=== PATIENT | male | born 1950 | race Caucasian/White ===

== ENCOUNTER 2024-05-25 14:43 | Emergency (ER) | payer MEDICARE, SELFPAY ==
[2024-05-25] VITALS (13 sets, daily range): BP systolic 114–144; BP diastolic 38–78; PULSE 55–75; RESP 16–18; TEMP 36.3–36.6; O2SAT 86–98
--- NOTE | 2024-05-25 15:15 | DI.CT_ITS ---
Exam(s) CT ABDOMEN PELVIS W EXAM: CT ABDOMEN PELVIS W CLINICAL HISTORY: abdomen pain, constipation, ?bowel obstruction. TECHNIQUE: Imaging Protocol: Axial computed tomography images with coronal and sagittal reformatted images were created and reviewed CONTRAST MATERIAL: Intravenous: Omnipaque 350 Contrast volume:75 ml Oral: no COMPARISON: No exams were available for comparison FINDINGS: ABDOMEN and PELVIS: Lung Bases: No acute findings. Liver: Normal density. No suspicious mass. Gallbladder and biliary tract: 2 calcified gallstones. No abnormal gallbladder distention or wall th ickening. No biliary dilation. Pancreas: Normal density. No abnormal calcifications or inflammatory process. No evidence of mass. Spleen: Normal. Kidneys: Normal size, contour and axis. No radiodense stones. No obstructive uropathy. No suspicious masses seen. Bilateral cysts. Adrenal glands: No masses seen. Vasculature: Abdominal aorta non-dilated. Riyf-sc-nylekfro atherosclerotic changes. Soft tissues: Unremarkable. Bladder: No gross wall thickening. No calculi.No focal mass. Bowel: Large quantity of stool is noted in the rectum and mid to distal sigmoid. Moderate quantity o f stool seen in ascending and transverse colon. Descending colon is nearly free of stool. No small- bowel obstruction. No bowel wall thickening. Appendix normal. Peritoneal cavity: No ascites. No focal collection. No mesenteric inflammatory response. No free air . Bones: Unremarkable for age. Reproductive organs: Unremarkable. Lymph nodes: No pathologically enlarged lymph nodes. IMPRESSION:: Large quantity of stool in the rectosigmoid. No evidence of bowel obstruction. RADIATION DOSE DELIVERED: Total DLP DATA REPOSITORY: All CT scans at this facility are submitted to the National Radiology Data Registry (NRDR) Dose Index Registry (DIR) with the [employer] (A[employer]). RADIATION OPTIMIZATION: All CT scans at this facility use at least one of these dose optimization te chniques: automated exposure control; mA and/or kV adjustment per patient size (includes targeted exa ms where dose is matched to clinical indication); or iterative reconstruction.
--- NOTE | 2024-05-25 15:27 | W.ED.GENAD ---
Discharge Plan Disposition Patient Disposition: Home Condition: Stable Discharge Details Clinical Impression: Constipation Primary Care Provider: Unknown,Unknown ED Provider: Case Jolley Home Meds and New Rx's Prescriptions: Continued nitroglycerin 0.4 mg tablet, sublingual 0.4 mg sublingual Q5M PRN Rx Instructions: do not exceed 3 doses per episode rosuvastatin 40 mg tablet 40 mg PO DAILY icosapent ethyl [Vascepa] 1 gram capsule 1 g PO DAILY losartan 100 mg tablet 100 mg PO DAILY aspirin [Adult Low Dose Aspirin] 81 mg tablet,delayed release (DR/EC) 162 mg PO DAILY coQ10 (ubiquinol) [Qunol Chandler CoQ10] 100 mg capsule 200 mg PO DAILY Discharge Instructions Instructions: Constipation, Adult ED Additional Instructions: You can take daily stool softener such as docusate and also a laxative such as MiraLAX or milk of magnesia If this continues to be an issue at her home and following up with your primary care provider If you feel more ill, have severe abdominal pain or persistent vomiting return to the emergency department for reevaluation HPI General Mode of arrival: ambulatory. Date/Time Provider Initiated Documentation: 05/25/24 14:44. Limitations to Documentation: no limitations. Information obtained by: patient. History of Present Illness 74 year old M presents to the emergency department with the chief complaint of constipation, described as moderate, Quality is described as aching, and is localized to the abdomen. Patient reports no radiation. Patient started experiencing this day(s) (2) and it has been constant. No relieving factors improve symptom(s), No exacerbating factors reported . Patient notes no other symptoms.. Patient did receive the following treatments prior to arrival, none Related Data Home Medications ?Medication ?Instructions ?Recorded ?Confirmed aspirin 81 mg tablet,delayed 162 mg PO DAILY 05/25/24 05/25/24 release (Adult Low Dose Aspirin) coQ10 (ubiquinol) 100 mg capsule 200 mg PO DAILY 05/25/24 05/25/24 (Qunol Chandler CoQ10) icosapent ethyl 1 gram capsule 1 g PO DAILY 05/25/24 05/25/24 (Vascepa) losartan 100 mg tablet 100 mg PO DAILY 05/25/24 05/25/24 nitroglycerin 0.4 mg sublingual 0.4 mg sublingual Q5M PRN 05/25/24 05/25/24 tablet rosuvastatin 40 mg tablet 40 mg PO DAILY 05/25/24 05/25/24 Allergies Allergy/AdvReac Type Severity Reaction Status Date / Time No Known Allergies Allergy Unverified 05/25/24 15:54 General Stated Complaint: Abd Prob LISA: 4 Review of Systems All systems reviewed & are unremarkable except as noted in HPI and below Constitutional Constitutional: Denies chills, Denies fever(s) and Denies weakness Cardiovascular Cardiovascular: Denies chest pain and Denies dyspnea Respiratory Respiratory: Denies cough and Denies dyspnea Gastrointestinal Gastrointestinal: Reports abdominal pain, Reports constipation, Denies nausea and Denies vomiting Neurologic Neurologic: Denies weakness Exam Const General: no acute distress Orientation: alert HENMT Head: normal to inspection Ears: external ears normal General nose exam: external nose normal Mouth: moist mucous membranes Eyes General: appearance normal, both eyes and all related structures Neck Neck: normal visual inspection Resp Effort & Inspection: normal respiratory effort and able to speak in complete sentences Cardio Rate: regular rate GI Palpation: soft and tender Skin General skin exam: no rashes or lesions noted Neuro General: patient alert and patient oriented x3 Extrem General: normal to inspection Psych Mental Status: mental status grossly normal Course Vital Signs Vital signs: Vital Signs Temperature 36.3 C L 05/25/24 14:44 Pulse 55 L 05/25/24 14:44 Respiratory Rate 18 05/25/24 14:44 Blood Pressure 144/68 H 05/25/24 14:44 Pulse Oximetry 98 05/25/24 14:44 Temperature 36.3 C L 05/25/24 14:44 Pulse 55 L 05/25/24 14:44 Respiratory Rate 18 05/25/24 14:44 Blood Pressure 144/68 H 05/25/24 14:44 Pulse Oximetry 98 05/25/24 14:44 Pain Level 5 05/25/24 14:44 Medical Decision Making 74-year-old male who denies any prior abdominal surgery comes in with 2 days of constipation and intermittent abdominal discomfort. Denies any fevers, chest pain, difficulty breathing, vomiting. He is well-appearing on exam. His abdomen is soft but he does have tenderness in the lower quadrants on exam. There is no guarding or rebound. Suspect constipation but given the pain and his age we will proceed with CBC, CMP, lipase and CT abdomen pelvis to evaluate for possible bowel obstruction Labs show white count of 15 otherwise no significant emergent findings, CT shows no significant findings other than constipation. Patient now in trying them mag citrate, will reassess. Patient feeling better after having an enema both the Fleet and soapsuds and a small bowel movement. He is requesting discharge and given reassuring workup feel this is reasonable. He will start stool softeners and laxatives and follow-up with his PCP if this continues to be an issue, return precautions given Differential Diagnosis Differential Diagnosis: Constipation, bowel obstruction Lab Data Lab results reviewed: Yes I reviewed the patient's lab results. Quality:[facility] Health Related Social Needs: No Data to Display [facility] All Active Problems (Updated 05/25/24 @ 17:36 by Case Jolley MD) Constipation (Acute) Social History Smoking/Tobacco Use Status: Former Tobacco Use Quit Date: 05/25/24 Smoking risk assessment performed?: Yes Alcohol Intake: current Alcohol Intake frequency: a few times a week Alcohol type: hard liquor Drug use: Never Substance use type: does not use Housing: house Do you feel safe at home: Yes Do you feel safe in your relationship?: Yes
[2024-05-25 15:38] LABS: Abs Immature Grans 0.06 10^3/uL (0.0-0.06); Absolute Basophil Count 0.05 10^3/uL (0.0-0.2); Basophils % 0.3 %; Eosinophils % 0.1 %; HCT 43.7 % (40.0-50.0); HGB 14.5 g/dL (13.5-17.5); Immature Grans % 0.4 %; Lymphocytes % 6.6 %; MCH 29.7 pg (27.0-33.0); MCHC 33.2 % (32.0-36.0); MCV 90 fL (80-95); MPV 9.5 fL (8.0-11.0); Monocytes % 5.3 %; Neutrophils % 87.3 %; Platelet Count 228 10^3/uL (130-400); RBC 4.88 10^6/uL (4.36-5.78); RDW 12.3 % (11.8-14.1); RDW-SD 40.9 fL; WBC 15.08 10^3/uL (4.4-10.8)
[2024-05-25 15:39] LABS: Absolute Eosinophil Count 0.02 10^3/uL (0.0-0.7); Absolute Neutrophil Count 13.16 10^3/uL (1.2-6.7)
[2024-05-25 15:54] LABS: ALT 40 U/L (16-63); AST 39 U/L (15-37); Albumin 3.8 g/dL (3.4-5.0); Alkaline Phosphatase 90 U/L (46-116); Anion Gap 8.3 mmol/L (3-11); BUN 22 mg/dL (7-18); Bilirubin, Total 2.11 mg/dL (0.2-1.0); CO2 29.7 mmol/L (21.0-32.0); CREATININE 1.3 mg/dL (0.70-1.30); Calcium 8.7 mg/dL (8.5-10.1); Chloride 102 mmol/L (98-107); Estimated GFR 58.01 (mL/min/1.73m2); Glucose 132 mg/dL (74-106); Magnesium 2.2 mg/dL (1.8-2.4); Potassium 3.7 mmol/L (3.5-5.1); Sodium 140 mmol/L (136-145); Total Protein 7.4 g/dL (6.4-8.2)
[2024-05-25 16:01] LABS: Bilirubin, Direct 0.4 mg/dL (0.0-0.2); Lipase 24 U/L (<78); TSH (W/Ref FT4) 10.55 uIU/mL (0.36-3.74)
[2024-05-25] MEDS: Magnesium Citrate 300 ML BTL PO (16:05)
[2024-05-25 16:22] LABS: FREE T4 0.98 ng/dL (0.76-1.46)
[2024-05-25] MEDS: Omnipaque 350 MG/ML 100 ML BTL IJ (16:30)
[2024-05-25] MEDS: Normal Saline - Diluent 50 ML VIAL IJ (16:30)
[2024-05-25] MEDS: Na Phosphate Enema-Adult 133 ML BTL PR (18:10)
== END 2024-05-25 19:45 | disposition home or self-care (01) ==
LOC: ER 17:49
PROVIDERS: Emergency Provider Emergency Medicine
DX: K59.00 Constipation, unspecified (principal); Z79.82 Long term (current) use of aspirin; Z87.891 Personal history of nicotine dependence
CPT/HCPCS: 36415; 80053; 83690; 99285; 74177; 82248; 83735; 84439; 84443; 85025; 99284; J3490